=== PATIENT | male | born 1950 | race Caucasian/White ===

== ENCOUNTER 2018-12-09 11:37 | Day surgery (SDC) | payer MEDICARE, SELFPAY ==
--- NOTE | 2018-12-05 12:31 | PM.PREOP ---
Pre-operative Note Interval Note History & Physical reviewed/Exam performed by Physician: Yes Changes to H&P: No
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
[2018-12-09 11:57] VITALS: BP 187/79; PULSE 62; RESP 17; TEMP 36.5; O2SAT 97; BMI 27.2
[2018-12-09] MEDS: PROPARACAINE 0.5% OPHTH SOL 2 DROPS EYE-OP (12:06)
[2018-12-09] MEDS: CATARACT EYE COMPOUND (10 DROPS/SYRINGE) 3 DROPS EYE-OP (12:06)
[2018-12-09] MEDS: BALANCED SALT IRRIG SOLN NO.2 15 ML IRR (13:26)
[2018-12-09] MEDS: CARBACHOL 1.5 ML VIAL INJ (13:26)
[2018-12-09] MEDS: CHONDROIDTIN/SOD HYALURONATE 1.05 ML SYRINGE INTRAOCULA (13:26)
[2018-12-09] MEDS: NEOMYCIN/POLY/DEX OPHTH OINT 1 APPLIC EYE-RIGHT (13:27)
[2018-12-09] MEDS: LIDOCAINE 1% W/EPI INJ 20 ML INJ (13:27)
[2018-12-09] MEDS: MOXIFLOXACIN OPHTH DROPS 3 ML BOTTLE 2 DROPS INJ (13:27)
[2018-12-09] MEDS: HYALURONATE SODIUM 10 MG/ML SYRINGE INJ (13:27)
[2018-12-09] MEDS: PHENYLEPHRINE/LIDOCAINE VIAL (OR) 0.2 ML EYE-OP (13:28)
[2018-12-09] MEDS: TRIAMCINOLONE 50 MG/5 ML VIAL INJ (13:28)
[2018-12-09] MEDS: OFLOXACIN 0.3% OPHTH 5 ML 2 DROPS EYE-RIGHT (13:28)
[2018-12-09] MEDS: BALANCED SALT IRRIG SOLN NO.2 500 ML, EPINEPHrine 1 MG IRR (13:29)
[2018-12-09] MEDS: LIDOCAINE 2% 4 ML, BUPIVACAINE 0.5% (PF) 4 ML, HYALURONIDASE 150 UNIT INJ (13:29)
[2018-12-09 14:00] VITALS: BP 196/81; PULSE 62; RESP 16; TEMP 37.1; O2SAT 100
== END 2018-12-09 14:12 | disposition home or self-care (01) ==
PROVIDERS: PCP Physician Assistant; Visit Provider Ophthalmology
DX: H25.811 Combined forms of age-related cataract, right eye (principal)
CPT/HCPCS: J0171; J2250; J2704; J3010; J3301; J3470

== ENCOUNTER 2019-01-13 09:59 | Day surgery (SDC) | payer MEDICARE, SELFPAY ==
--- NOTE | 2019-01-10 11:36 | PM.PREOP ---
Pre-operative Note Interval Note History & Physical reviewed/Exam performed by Physician: Yes Changes to H&P: No
--- NOTE | 2019-01-10 11:37 | PM.OP.1 ---
Operative Date/Time/Diagnoses Date of procedure: 01/13/19 Time of procedure: 10:45 Procedure & Clinicians Procedure: Preoperative diagnoses: 1. Left nuclear sclerotic and cortical cataract. Postoperative diagnoses: 1. Cataract removed by phacoemulsification with placement of posterior chamber intraocular lens and use of MiLOOP. Procedure: Phacoemulsification with posterior chamber intraocular lens implant and use of MiLOOP. Surgeon: Jeannette Dennison MD Complications: None Specimen: None Implant: ZCBOO+20.5 Blood loss: None Anesthesia: Retrobulbar with monitored standby Description of procedure: Patient presents with a complaint of decreased vision due to cataract which is affecting activities of daily living. The patient wants surgery to improve vision. The patient was taken to the operating room and given IV sedation. A retrobulbar block consisting of 6 cc of 2% xylocaine without epinephrine mixed half and half with 0.5% Marcaine with 1 cc of hyaluronidase added is placed between the medial and lateral 1/3 of the inferior orbital rim. Lid akinesia is obtain with 1% xylocaine with epinephrine infiltrated along the lid margin. The eye is manually massaged for 30 sec, prepped using Betadine solution, and draped in the usual sterile fashion. Temporal approach was made, a 1 mm side-port incision was made 90? from the proposed clear corneal incision position. Phenylephrine 1.5% mixed with 1% xylocaine 0.2 cc was placed into the anterior chamber. Viscoat followed by Healon was then placed. A 2.6 mm clear incision with a 2.6 mm blade was placed. A 360 degree capsulorrhexis style capsulotomy was then performed with a cystitome needle on a Healon. Hydrodelineation and hydrodissection were performed. Extra viscoelastic was placed into the anterior chamber. The MiLOOP device was then inspected and inserted into the eye in the neutral position. The lens was then engaged to the right side under the capsulorrhexis and the lens jane-disected and then the device removed. The phacoemulsification unit is introduced, and used to groove the central lens. It is then removed in chopping mode. Epi nucleus is removed with epinuclear mode and irrigation aspiration was used to remove the peripheral cortex. The posterior capsule is polished. The intraocular lens is selected, inspected, power confirmed, and placed in the posterior chamber. The pupil was constricted with Miostat.. The wound was stromally hydrated and tested for leaks, there was none and it was left sutureless. Vigamox 0.1 cc was placed into the anterior chamber. Kenalog 0.2 cc was placed in the superior subconjunctival space. A drop of antibiotic and was placed and the eye was patched and shielded. The patient was stable and returned to the recovery room in excellent condition. Dictated by: Jeannette Dennison MD Copy to: [facility]
--- NOTE | 2019-01-10 11:42 | P.OP_ITS ---
Operative Date/Time/Diagnoses Date of procedure: 01/13/19 Time of procedure: 10:45 Procedure & Clinicians Procedure: Preoperative diagnoses: 1. Left nuclear sclerotic and cortical cataract. Postoperative diagnoses: 1. Cataract removed by phacoemulsification with placement of posterior chamber intraocular lens and use of MiLOOP. Procedure: Phacoemulsification with posterior chamber intraocular lens implant and use of MiLOOP. Surgeon: Jeannette Dennison MD Complications: None Specimen: None Implant: ZCBOO+20.5 Blood loss: None Anesthesia: Retrobulbar with monitored standby Description of procedure: Patient presents with a complaint of decreased vi chago due to cataract which is affecting activities of daily living. The patient wants surgery to improve vision. The patient was taken to the operating room and given IV sedation. A retrobulbar block consisting of 6 cc of 2% xylocaine without epinephrine mixed half and half with 0.5% Marcaine with 1 cc of hyaluronidase added is placed between the medial and lateral 1/3 of the inferior orbital rim. Lid akinesia is obtain with 1% xylocaine with epinephrine infiltrated along the lid margin. The eye is manually massaged for 30 sec, prepped using Betadine solution, and draped in the usual sterile fashion. Temporal approach was made, a 1 mm side-port incision was made 90? from the proposed clear corneal incision position. Phenylephrine 1.5% mixed with 1% xylocaine 0.2 cc was placed into the anterior chamber. Viscoat followed by Healon was then placed. A 2.6 mm clear incision with a 2.6 mm blade was placed. A 360 degree capsulorrhexis style capsulotomy was then performed with a cysti tome needle on a Healon. Hydrodelineation and hydrodissection were performed. Extra viscoelastic was placed into the anterior chamber. The MiLOOP device was then inspected and inserted into the eye in the neutral position. The lens was then engaged to the right side under the capsulorrhexis and the lens jane- disected and then the device removed. The phacoemulsification unit is introduced, and used to groove the central lens. It is then removed in chopping mode. Epi nucleus is removed with epinuclear mode and irrigation aspiration was used to remove the peripheral cortex. The posterior capsule is polished. The intraocular lens is selected, inspected, power confirmed, and placed in the posterior chamber. The pupil was constricted with Miostat.. The wound was stromally hydrated and tested for leaks, there was none and it was left sutureless. Vigamox 0.1 cc was placed into the anterior chamber. Kenalog 0.2 cc was placed in the superior subconjunctival space. A drop of antibiotic and was placed and the eye was patched and shielded. The patient was stable and returned to the recovery room in excellent condition. Dictated by: Jeannette Dennison MD Copy to: [facility]
[2019-01-13] MEDS: PROPARACAINE 0.5% OPHTH SOL 2 DROPS EYE-OP (10:15)
[2019-01-13 10:16] VITALS: BMI 24.7
[2019-01-13] MEDS: CATARACT EYE COMPOUND (10 DROPS/SYRINGE) 3 DROPS EYE-OP (10:20)
[2019-01-13 10:21] VITALS: BP 181/88; PULSE 58; RESP 16; TEMP 37.2; O2SAT 98
[2019-01-13] MEDS: LIDOCAINE 2% 4 ML, BUPIVACAINE 0.5% (PF) 4 ML, HYALURONIDASE 150 UNIT INJ (11:28)
[2019-01-13] MEDS: LIDOCAINE 1% W/EPI INJ 20 ML INJ (11:29)
[2019-01-13] MEDS: MOXIFLOXACIN OPHTH DROPS 3 ML BOTTLE 2 DROPS INJ (11:30)
[2019-01-13] MEDS: PHENYLEPHRINE/LIDOCAINE VIAL (OR) 0.2 ML EYE-OP (11:30)
[2019-01-13] MEDS: TRIAMCINOLONE 50 MG/5 ML VIAL INJ (11:30)
[2019-01-13] MEDS: HYALURONATE SODIUM 10 MG/ML SYRINGE INJ (11:31)
[2019-01-13] MEDS: NEOMYCIN/POLY/DEX OPHTH OINT 1 APPLIC EYE-LEFT (11:31)
[2019-01-13] MEDS: CHONDROIDTIN/SOD HYALURONATE 1.05 ML SYRINGE INTRAOCULA (11:31)
[2019-01-13] MEDS: BALANCED SALT IRRIG SOLN NO.2 15 ML IRR (11:31)
[2019-01-13] MEDS: OFLOXACIN 0.3% OPHTH 5 ML 2 DROPS EYE-LEFT (11:31)
[2019-01-13] MEDS: CARBACHOL 1.5 ML VIAL INJ (11:31)
[2019-01-13] MEDS: BALANCED SALT IRRIG SOLN NO.2 500 ML, EPINEPHrine 1 MG IRR (11:32)
[2019-01-13 11:53] VITALS: BP 193/77; PULSE 57; RESP 12; TEMP 36.5; O2SAT 100
== END 2019-01-13 12:04 | disposition home or self-care (01) ==
LOC: OR 10:01
PROVIDERS: PCP Physician Assistant; Visit Provider Ophthalmology
PROC: (CPT 66984; principal; 2019-01-13 10:45)
DX: H25.812 Combined forms of age-related cataract, left eye (principal)
CPT/HCPCS: 66984; J0171; J2250; J2704; J3010; J3301; J3470

== ENCOUNTER 2019-06-08 19:03 | Emergency (ER) | payer MEDICARE, SELFPAY ==
--- NOTE | 2019-06-08 19:05 | ED.LOWEXIN ---
HPI - Extremity Injury (Lower) General Chief Complaint: Extremity Injury, Lower Stated Complaint: LEFT FOOT INJURY Time Seen by Provider: 06/08/19 19:05 Source: patient Mode of arrival: Ambulatory Limitations: no limitations History of Present Illness HPI Narrative: This is a 68-year-old male who comes to the emergency department complaint and his pain in his left foot. Patient states that he dropped a step ladder on his foot a couple hours ago about 1/2 to 2. Since then he has had pain particularly with weight-bearing. He has some swelling a little bit of bruising. Patient states that he will tingling. He denies any other injuries. Denies any other medical issues. Denies any allergies to medications. Related Data Previous Rx's Medication Instructions Recorded celecoxib 200 mg capsule 400 mg PO DAILY #60 cap 12/02/18 zolpidem 10 mg tablet 10 mg PO HSP #30 tab 05/26/19 oxycodone-acetaminophen [Percocet] 1 tab PO QID PRN #20 tab 06/08/19 Allergies Allergy/AdvReac Type Severity Reaction Status Date / Time No Known Drug Allergies Allergy Verified 01/13/19 10:13 Review of Systems Review of Systems ROS Unobtainable: All systems reviewed & are unremarkable except as noted in HPI and below Patient History Medical History Chronic pain syndrome (Chronic Unknown) Insomnia (Chronic Unknown) Surgical History Status post hernia repair Social History household members: friend(s) Smoking Status: Former smoker Tobacco: How many years used: 20 second hand exposure: No alcohol intake: current (a glass of vodka once a night.) substance use type: marijuana (I smoke marijuana once a night. ) Exam Narrative Exam Narrative: GENERAL: Alert and oriented x three, well-nourished male in mild distress HEENT: Head normocephalic, atraumatic, EOMI, pupils reactive, face symmetric, moist mucous membranes NECK: Supple, full range of motion. pain over the 5th metatarsal mid bone, patient has a little bit of swelling and mild ecchymosis although not extensive. Nontender in the toes, nontender in the lateral malleoli and medial malleoli. No tenderness over the calcaneus. 2+ pulse. Normal sensation throughout to light touch. EXTREMITIES: Normal range of motion, no clubbing or edema. Neurovascularly intact NEUROLOGICAL: Cranial nerves II through XII grossly intact. Moving all extremities SKIN: Warm, dry, no petechiae, no rashes or lesions. Initial Vital Signs Initial Vital Signs: Vital Signs Temperature 98.3 F 06/08/19 19:10 Pulse Rate 93 H 06/08/19 19:10 Respiratory Rate 18 06/08/19 19:10 Blood Pressure 191/98 H 06/08/19 19:10 Pulse Oximetry 100 06/08/19 19:10 Course Orders Ordered: ED Orders 06/08/19 19:10 XR foot LT min 3V Stat Vital Signs Vital signs: Vital Signs - 8 hr 06/08/19 19:10 06/08/19 19:16 Temperature 98.3 F Pulse Rate 93 H Pulse Rate [Left Dorsalis Pedis] 93 H Respiratory Rate 18 Blood Pressure 191/98 H Pulse Oximetry 100 Discharge Plan Departure Patient Disposition: Home Clinical Impression: Closed fracture of fifth metatarsal bone Discharge Date/Time: 06/08/19 20:05 Instructions: DI for Foot Fracture Activity Restrictions/Additional Instructions: Follow-up with Orthopedic surgery in the next 7-10 days for recheck. Call for an appointment in the morning. Take medication as prescribed for pain, this medication can make you sleepy do not drive, perform hazardous activities or make any major decisions while taking it. Splint Care: Keep splint clean and dry. Elevated affected body part to decrease swelling. OK to use ice pack on the affected body part. Use for 15-20 minutes each time, for 5-6x per day. If you develop worsening pain, numbness, tingling, discoloration of the affected body part, loosen the splint by loosening the JEROD wrap, and either see your doctor for an urgent re-assessment, or return to the Emergency Department. Return to the Emergency Department for any new or worsening symptoms. Prescriptions: New oxycodone-acetaminophen [Percocet] 5-325 mg tablet 1 tab PO QID PRN (Reason: pain) Qty: 20 RF: 0 No Action celecoxib 200 mg capsule 400 mg PO DAILY Qty: 60 RF: 6 zolpidem [Ambien] 10 mg tablet 10 mg PO HSP Qty: 30 RF: 5 Referrals: Kallie Crews PA-C [Primary Care Provider] - Christophe Rico MD [Physician] -
[2019-06-08 19:10] VITALS: BP 191/98; PULSE 93; RESP 18; TEMP 36.8; O2SAT 100; BMI 27.9
--- NOTE | 2019-06-08 19:10 | DI.RAD.S_ITS ---
PROCEDURE: XR FOOT LT MIN 3V INDICATIONS: ladder fell on foot, pain/swelling 5th metatarsal TECHNIQUE: 3 views of the foot were acquired. COMPARISON: [facility], , FOOT 2V RIGHT, 07/02/2015, 16:59. FINDINGS: Bones: There is a minimally displaced fracture at the base of the fifth metatarsal. It is unclear whether there is intra-articular extension. No other acute fracture or dislocation. Severe degenerative changes are present at the first MTP joint. Soft tissues: No tibiotalar joint effusion. Achilles tendon appears normal. IMPRESSION: Proximal fifth metatarsal fracture. Dictated by: Marylou Cook M.D. on 06/08/2019 at 19:47 Approved by: Marylou Cook M.D. on 06/08/2019 at 19:48
[2019-06-08 19:16] VITALS: PULSE 93
== END 2019-06-08 20:05 | disposition home or self-care (01) ==
PROVIDERS: Emergency Provider Emergency Medicine; PCP Physician Assistant
DX: S92.352A Displaced fracture of fifth metatarsal bone, left foot, initial encounter for closed fracture (principal)
CPT/HCPCS: 29550; 73630; 99283

== ENCOUNTER → 2020-05-12 13:40 | Outpatient (CLI) | payer MEDICARE, SELFPAY ==
[2020-05-12 15:03] LABS: Hemoglobin A1C% w Est Avg Glu 6.8 % (4.0-6.0)
[2020-05-12 15:13] LABS: Alanine Aminotransferase 57 IU/L (<50); Albumin 4.2 g/dL (3.5-5.0); Albumin Globulin Ratio 1.3 (1.0-2.8); Alkaline Phosphatase 50 U/L (38-126); Aspartate Aminotransferase 59 IU/L (17-59); BUN Creatinine Ratio 17.8 (6-22); Blood Urea Nitrogen 13 mg/dL (9-20); Calcium 9.2 mg/dL (8.4-10.2); Carbon Dioxide 29 mmol/L (22-32); Chloride 99 mmol/L (98-107); Cholesterol 240 mg/dL (140-199); Estimated Glomerular Filt Rate > 60.0 mL/min (>60); Globulin 3.3 g/dL (1.7-4.1); Glucose 133 mg/dL (80-110); HDL Cholesterol 69 mg/dL (40-60); HEMOLYSIS < 15 (0-50); LDL Cholesterol Calculated 141 mg/dL (<100); Potassium 4.3 mmol/L (3.4-5.1); Sodium 136 mmol/L (137-145); Total Protein 7.5 g/dL (6.3-8.2); Triglycerides 150 mg/dL (35-150)
== END ==
PROVIDERS: PCP Family Medicine; Referring Provider Family Medicine; Visit Provider Family Medicine
DX: G47.00 Insomnia, unspecified (principal); G89.29 Other chronic pain; E11.9 Type 2 diabetes mellitus without complications; R73.09 Other abnormal glucose
CPT/HCPCS: 36415; 80053; 80061; 83036

== ENCOUNTER → 2020-05-15 13:31 | Outpatient (CLI) | payer MEDICARE, SELFPAY ==
[2020-05-16 14:12] LABS: Fecal Immunochemical Test Negative (Negative)
== END ==
PROVIDERS: PCP Family Medicine; Referring Provider Family Medicine; Visit Provider Family Medicine
DX: G47.00 Insomnia, unspecified (principal); G89.29 Other chronic pain
CPT/HCPCS: 82274

== ENCOUNTER → 2020-07-03 11:28 | Outpatient (CLI) | payer MEDICARE, SELFPAY ==
[2020-07-03 13:20] LABS: COVID19 -Nasal RAPID Negative (Negative)
== END ==
PROVIDERS: PCP Family Medicine; Visit Provider Surgery
DX: Z11.59 Encounter for screening for other viral diseases (principal)
CPT/HCPCS: 87635; C9803

== ENCOUNTER 2020-07-04 10:56 | Day surgery (SDC) | payer MEDICARE, MEDICAID, SELFPAY ==
[2020-06-30 13:06] VITALS: BMI 32.3
[2020-07-04] VITALS (9 sets, daily range): BP systolic 113–169; BP diastolic 67–98; PULSE 56–72; RESP 12–18; TEMP 36.3–36.9; O2SAT 92–98; BMI 31.5
[2020-07-04] MEDS: LACTATED RINGERS 1,000 ML 100 ML IV (11:35)
--- NOTE | 2020-07-04 12:01 | PM.PREOP ---
Pre-operative Note COVID-19 COVID-19 status: Negative Interval Note History & Physical reviewed/Exam performed by Physician: Yes Changes to H&P: No
[2020-07-04] MEDS: CEFAZOLIN 2 GM/100 ML FROZ.PIGGY IV (13:16)
--- NOTE | 2020-07-04 13:34 | SUR.OPER ---
Addendum entered by Grace Heart R.N. 07/04/20 13:37: pillow under legs. Original Note: Supine on padded OR bed, head on pillow, arms secured on padded arm boards at <90 degrees abduction, legs uncrossed, safety belt at thigh, tape over blanket over lower legs.
[2020-07-04] MEDS: BUPIVACAINE 0.25% (PF) VIAL 30 ML INJ (13:46)
--- NOTE | 2020-07-04 14:25 | PM.OP.1 ---
Operative Date/Time/Diagnoses Date of procedure: 07/04/20 Time of procedure: 14:25 Pre-op diagnosis: Umbilical hernia Post-op diagnosis: same Procedure & Clinicians Procedure: Open umbilical hernia repair with mesh Same procedure as scheduled: Yes Indications: A 69-year-old man with a symptomatic umbilical hernia here for elective repair Surgeon: Isac Raman Anesthesia Type: General Operative Notes Findings: 1.5 cm fascial defect containing incarcerated omentum Specimen(s): none sent Estimated Blood Loss (mL): 20 Procedure in detail: Patient was brought to the operating room placed supine on the table. Bilateral lower extremity compression devices were applied. General anesthesia was induced and they were intubated with an endotracheal tube. They received 2 g of Ancef prior to skin incision. They were prepped and draped in sterile fashion. A time-out was performed. A curvilinear incision was made inferior to the umbilicus. The subcutaneous tissues were divided. The umbilical hernia was identified and the hernia sac was dissected off the umbilical skin and circumferentially off of the fascia defect. The hernia sac was sharply opened and contained viable omentum. The omentum was reduced back into the abdomen. Using blunt dissection I carefully carefully freed the hernia sac from beneath the fascia defect in order to accomodate the mesh. The fascia defect was 1.5 cm in maximal diameter. A Bard Ventralex ST hernia patch 4 cm was inserted beneath the fascia defect and above the peritoneum in a sublay position. The mesh was anchored in multiple locations using Ethibond suture to the fascia and the fascial defect was closed over the mesh. The umbilical skin was tacked to the subcutaneous tissues and then the remainder of the subcutaneous tissues were reapproximated using 3 0 Vicry,l skin closed with 4 0 Monocryl followed by the application of Dermabond and Steri-Strips. Sponge instrument count at the end of the operation was correct. Patient tolerated procedure well was extubated and transferred to postoperative care unit in stable condition. Complications: none Post-operative Condition: stable Disposition: same day surgery
[2020-07-04] MEDS: HYDROMORPHONE 2 MG INJ IV ×2 (14:34→14:38)
[2020-07-04] MEDS: fentaNYL 100 MCG/2 ML INJ IV ×4 (14:35→14:52)
[2020-07-04] MEDS: OXYCODONE IR 5 MG TABLET PO (14:43)
[2020-07-04] MEDS: OXYCODONE/ACETAMINOPHEN 5/325 TABLET 1 TAB PO (14:43)
[2020-07-04] MEDS: ACETAMINOPHEN 325 MG TABLET 650 MG PO (14:43)
--- NOTE | 2020-07-04 15:43 | SUR.PHASEII ---
Pt dcd in stable condition via wc at 1530 but friend still getting rx, met up with friend at pharmacy and waited 14 minutes. Dcd now at curbside with rx and all dc instructions pt verbalizes understanding. Up and ambulating well without problems
== END 2020-07-04 15:45 | disposition home or self-care (01) ==
PROVIDERS: PCP Family Medicine; Referring Provider Surgery; Visit Provider Surgery
PROC: (CPT 49585; principal; 2020-07-04 11:45)
DX: K42.9 Umbilical hernia without obstruction or gangrene (principal); I10 Essential (primary) hypertension; E78.5 Hyperlipidemia, unspecified; E11.9 Type 2 diabetes mellitus without complications; Z79.84 Long term (current) use of oral hypoglycemic drugs
CPT/HCPCS: 49585; C1781; J0690; J1170; J2250; J3010

== ENCOUNTER → 2021-06-21 15:14 | Outpatient (CLI) | payer MEDICARE, MEDICAID, SELFPAY ==
--- NOTE | 2021-06-21 15:16 | DI.RAD.S_ITS ---
PROCEDURE: XR SHOULDER RT MIN 2V INDICATIONS: Progressive right shoulder pain, adhesive capsulitis TECHNIQUE: 3 views of the shoulder were acquired. COMPARISON: [facility], , SHOULDER MIN 2VW (RT), 09/18/2012, 14:32. FINDINGS: Bones: No fractures or dislocations. No suspicious bony lesions. Visualized ribs appear intact. Moderate periarticular osteophyte formation at the acromioclavicular and glenohumeral joints. Soft tissues: No suspicious soft tissue calcifications. IMPRESSION: Osteoarthritis. No acute fracture. No osseous lesion. If symptoms and/or clinical suspicion for pathology persist, further assessment with repeat, or advanced imaging (e.g., CT, MRI, or bone scan) may be helpful for further assessment. Dictated by: Lissette Juarez M.D. on 06/21/2021 at 16:30 Approved by: Lissette Juarez M.D. on 06/21/2021 at 16:31
== END ==
PROVIDERS: PCP Family Medicine; Referring Provider Family Medicine; Visit Provider Family Medicine
DX: M75.01 Adhesive capsulitis of right shoulder (principal); M25.511 Pain in right shoulder; M19.011 Primary osteoarthritis, right shoulder
CPT/HCPCS: 73030

== ENCOUNTER → 2022-01-25 09:56 | Outpatient (CLI) | payer MEDICARE, MEDICAID, SELFPAY ==
[2022-01-25 10:41] LABS: Hemoglobin A1C% w Est Avg Glu 6.9 % (4.0-6.0)
[2022-01-25 10:59] LABS: Alanine Aminotransferase 40 IU/L (<50); Albumin 4.3 g/dL (3.5-5.0); Albumin Globulin Ratio 1.3 (1.0-2.8); Alkaline Phosphatase 49 U/L (38-126); Aspartate Aminotransferase 46 IU/L (17-59); BUN Creatinine Ratio 14.7 (6-22); Bilirubin Total 0.8 mg/dL (0.2-1.3); Blood Urea Nitrogen 11 mg/dL (9-20); Calcium 9.1 mg/dL (8.4-10.2); Carbon Dioxide 30 mmol/L (22-32); Chloride 99 mmol/L (98-107); Estimated Glomerular Filt Rate > 60 mL/min (>60); Globulin 3.2 g/dL (1.7-4.1); Glucose 174 mg/dL (80-110); HEMOLYSIS < 15 (0-50); Potassium 4.9 mmol/L (3.4-5.1); Sodium 134 mmol/L (137-145); Total Protein 7.5 g/dL (6.3-8.2); Uric Acid 4.4 mg/dL (3.5-8.5)
[2022-01-25 11:20] LABS: TSH w/ Reflex to FT4 1.79 uIU/mL (0.47-4.68)
[2022-01-25 11:34] LABS: Creatinine Urine Random 117.6 mg/dL
[2022-01-25 11:38] LABS: Microalbumin Urine Random 1.3 mg/dL (0-1.6)
== END ==
PROVIDERS: PCP Family Medicine; Referring Provider Family Medicine; Visit Provider Family Medicine
DX: E11.9 Type 2 diabetes mellitus without complications (principal); E78.2 Mixed hyperlipidemia
CPT/HCPCS: 36415; 80053; 82043; 82570; 83036; 84443; 84550

== ENCOUNTER → 2022-11-21 12:27 | Outpatient (CLI) | payer MEDICARE, SELFPAY ==
--- NOTE | 2022-11-21 12:29 | DI.RAD.S_ITS ---
PROCEDURE: XR LUMBAR SPINE MIN 4V INDICATIONS: LOW BACK PAIN TECHNIQUE: 8 views of the lumbar spine were acquired, including bilateral oblique views. COMPARISON: None. FINDINGS: Bones: 5 nonrib-bearing vertebrae are present. Grade 1 anterolisthesis of L4 on L5, secondary to facet arthrosis. Moderate disc height loss at all levels. Moderate facet arthrosis, L3 through S1. Left SI joint and pubic symphysis arthrodesis, without complication. Soft tissues: Overlying bowel gas pattern is normal. No suspicious soft tissue calcifications. Oblique images: No pars defects. IMPRESSION: Moderate, multilevel degenerative disc disease and lower lumbar facet arthrosis. Dictated by: Marvin Arellano M.D. on 11/21/2022 at 14:34 Approved by: Marvin Arellano M.D. on 11/21/2022 at 14:36
--- NOTE | 2022-11-21 12:29 | DI.RAD.S_ITS ---
PROCEDURE: XR KNEE LT 3V INDICATIONS: Chronic pain, post-surgical TECHNIQUE: 3 views of the knee were acquired. COMPARISON: None. FINDINGS: Bones: Tibial plateau ORIF, without hardware complication. Healed proximal fibular shaft fracture. Tricompartmental joint space narrowing with associated osteophytosis. Subchondral sclerosis of the medial tibial plateau. Chondrocalcinosis. Soft tissues: No joint effusion. No suspicious soft tissue calcifications. IMPRESSION: Moderate tricompartmental osteoarthritis. Chondrocalcinosis, which can be seen in the setting of CPPD, aging, and parathyroid disorders. Dictated by: Marvin Arellano M.D. on 11/21/2022 at 13:58 Approved by: Marvin Arellano M.D. on 11/21/2022 at 14:00
--- NOTE | 2022-11-21 12:29 | DI.RAD.S_ITS ---
PROCEDURE: XR HIP W PEL IF DONE LT MIN 4V INDICATIONS: Bilateral hip pain TECHNIQUE: AP pelvis and lateral view of the hips acquired. COMPARISON: None. FINDINGS: Bones: Left sacroiliac and pubic symphysis arthrodesis, without hardware complication. Nonuniform joint space narrowing of the hip joints, with osteophytic lipping of the acetabulum. Soft tissues: Overlying postoperative changes are noted. No suspicious soft tissue densities. IMPRESSION: Mild bilateral hip osteoarthritis. Dictated by: Marvin Arellano M.D. on 11/21/2022 at 13:56 Approved by: Marvin Arellano M.D. on 11/21/2022 at 13:57
--- NOTE | 2022-11-21 12:29 | DI.RAD.S_ITS ---
PROCEDURE: XR KNEE RT 3V INDICATIONS: Chronic right knee pain TECHNIQUE: 3 views of the knee were acquired. COMPARISON: None. FINDINGS: Bones: No fractures or dislocations. No suspicious bony lesions. Tricompartmental nonuniform joint space narrowing. Osteophytosis of the medial tibial plateau and patella. Soft tissues: No joint effusion. No suspicious soft tissue calcifications. IMPRESSION: Mild tricompartmental osteoarthritis. Dictated by: Marvin Arellano M.D. on 11/21/2022 at 13:57 Approved by: Marvin Arellano M.D. on 11/21/2022 at 13:58
[2022-11-21 13:48] LABS: Add Manual Diff / Slide Review NO; Basophils Absolute Auto 0 /uL (0-100); Basophils Percent Auto 0.7 % (0-2); Eosinophils Absolute Auto 100 /uL (0-450); Eosinophils Percent Auto 0.9 % (2-4); Hematocrit 45.2 % (41-53); Hemoglobin 15.6 g/dL (13.5-17.5); Lymphocytes Absolute Auto 2200 /uL (1100-4500); Lymphocytes Percent Auto 30.3 % (25-40); Mean Corpuscular HGB Conc 34.5 % (30-36); Mean Corpuscular Hemoglobin 33.8 PG (26-34); Monocytes Absolute Auto 800 /uL (0-900); Monocytes Percent Auto 10.9 % (3-14); Neutrophils Absolute Auto 4100 /uL (1500-7000); Neutrophils Percent Auto 57.2 % (50-75); Platelet Count 235 X10^3/uL (150-400); Red Blood Cell Count 4.61 X10^6/uL (4.5-5.9); Red Cell Distribution Width 13.6 % (11.6-14.8); White Blood Cell Count 7.2 X10^3/uL (4.5-11.0)
[2022-11-21 14:49] LABS: Alanine Aminotransferase 90 IU/L (<50); Albumin 4.2 g/dL (3.5-5.0); Albumin Globulin Ratio 1.4 (1.0-2.8); Alkaline Phosphatase 57 U/L (38-126); Aspartate Aminotransferase 111 IU/L (17-59); BUN Creatinine Ratio 22.6 (6-22); Bilirubin Total 0.9 mg/dL (0.2-1.3); Blood Urea Nitrogen 19 mg/dL (9-20); Calcium 9.7 mg/dL (8.4-10.2); Carbon Dioxide 30 mmol/L (22-32); Chloride 99 mmol/L (98-107); Cholesterol 256 mg/dL (140-199); Estimated Glomerular Filt Rate > 60 mL/min (>60); Globulin 3.1 g/dL (1.7-4.1); Glucose 180 mg/dL (80-110); HEMOLYSIS < 15 (0-50); Potassium 4.6 mmol/L (3.4-5.1); Sodium 138 mmol/L (137-145); Total Protein 7.3 g/dL (6.3-8.2); Triglycerides 152 mg/dL (35-150)
[2022-11-21 14:57] LABS: LDL Cholesterol Calculated 101 mg/dL (<100)
[2022-11-21 14:58] LABS: HDL Cholesterol 125 mg/dL (40-60)
[2022-11-22 06:04] LABS: Labcorp Hemoglobin (Hb) A1c 7.1 % (4.8-5.6)
== END ==
PROVIDERS: PCP Family Medicine; Referring Provider Anesthesiology; Visit Provider Anesthesiology
DX: M16.0 Bilateral primary osteoarthritis of hip (principal); M17.0 Bilateral primary osteoarthritis of knee; M11.262 Other chondrocalcinosis, left knee; M51.36 Other intervertebral disc degeneration, lumbar region; M47.816 Spondylosis without myelopathy or radiculopathy, lumbar region; M47.817 Spondylosis without myelopathy or radiculopathy, lumbosacral region; M43.06 Spondylolysis, lumbar region; M25.551 Pain in right hip; M25.552 Pain in left hip; M25.561 Pain in right knee; M25.562 Pain in left knee; M54.50 Low back pain, unspecified; E11.9 Type 2 diabetes mellitus without complications; E78.5 Hyperlipidemia, unspecified; G89.29 Other chronic pain
CPT/HCPCS: 36415; 72110; 73522; 73562; 80053; 80061; 83036; 85025; 99214

== ENCOUNTER 2022-11-28 13:15 | Emergency (ER) | payer MEDICARE, SELFPAY ==
[2022-11-28 13:22] VITALS: BP 209/75; BP 210/97; PULSE 92; PULSE 93; RESP 16; TEMP 36.1; O2SAT 96; BMI 31.5
--- NOTE | 2022-11-28 13:28 | ED.GENADULT ---
HPI - General Adult General Chief complaint: Diabetic Problem Stated complaint: blood sugar reading 315 Time Seen by Provider: 11/28/22 13:22 Source: patient Mode of arrival: Ambulatory History of Present Illness HPI narrative: 72-year-old male former smoker with history of hypertension and type 2 diabetes on metformin presents for evaluation of blood sugar of 315 at home. He has no symptoms whatsoever. He is not dizzy nor weak or lightheaded. Denies blurred vision or trouble with speech. He denies any chest pain or shortness of breath. He is had no abdominal pain, nausea or vomiting. He denies any excessive thirst or hunger, he denies frequent urination. He denies changes in diet or medications. Related Data Home Medications Medication Instructions Recorded Confirmed aspirin 81 mg tablet 81 mg PO DAILY 07/04/20 11/21/22 Previous Rx's Medication Instructions Recorded amlodipine 5 mg tablet 5 mg PO BEDTIME #90 tabs 06/11/22 lisinopril 20 1 tab PO DAILY #90 tabs 06/11/22 mg-hydrochlorothiazide 12.5 mg tablet celecoxib 200 mg capsule See Rx Instructions .Route 09/13/22 .COMPLEX #180 caps zolpidem 10 mg tablet See Rx Instructions .Route 10/12/22 .COMPLEX #30 tabs oxycodone 5 mg tablet 5 mg PO TID PRN pain #90 tabs 10/29/22 metformin 500 mg tablet See Rx Instructions .Route 11/20/22 .COMPLEX #60 tabs gabapentin 300 mg capsule 300 mg PO .COMPLEX #90 caps 11/21/22 metformin 1,000 mg tablet 1,000 mg PO BID #60 tabs 11/28/22 Allergies Allergy/AdvReac Type Severity Reaction Status Date / Time No Known Drug Allergies Allergy Verified 11/28/22 13:22 Review of Systems Review of Systems Narrative: GENERAL: Denies chills, fatigue, malaise, fever, sweats. HEENT: Denies sinus pain, ear pain, sore throat, difficulty swallowing, dizziness. RESPIRATORY: Denies dyspnea, cough, wheezing, hemoptysis, sputum. CARDIOVASCULAR: Denies chest pain, palpitations, orthopnea, edema, GASTROINTESTINAL: Denies nausea, vomiting, abdominal pain, diarrhea, constipation, melena. : Denies dysuria, frequency, incontinence, hematuria, urinary retention. MUSCULOSKELETAL: denies weakness, joint pain, or bony pain SKIN: Denies rash, skin lesions, or other NEUROLOGIC: Denies weakness, headache, numbness, change in speech, confusion, seizures, incoordination. PSYCHIATRIC: No concerning psychosocial issues. 12 point review of systems is negative except for those stated above Patient History Medical History Adhesive capsulitis Bilateral hip pain Chronic pain syndrome (Unknown) Hyperlipidemia Hypertension Insomnia (Unknown) Left knee pain Right knee pain Right shoulder injury Right shoulder pain Seasonal allergic rhinitis Seborrheic keratosis Spondylolysis, lumbar region Type 2 diabetes mellitus Umbilical hernia Visual changes Well adult exam Surgical History Status post hernia repair Family History Family/Other No pertinent family history Social History household members: friend(s) Smoking Status: Former smoker Tobacco: How many years used: 20 second hand exposure: No alcohol intake: current substance use type: marijuana Smoking Status: Former smoker alcohol intake frequency: 0-2 drinks per day Alcohol type: beer Substance Use Type: does not use Exam Narrative Exam Narrative: GENERAL: [72] year old patient appears stated age. Well-developed patient, in no obvious HEAD: Atraumatic. Normocephalic. EYES: Pupils equal round and reactive. Extraocular motions intact. No scleral icterus. No injection or drainage. ENT: Nose without bleeding, purulent drainage. Throat without erythema, tonsillar hypertrophy or exudate. Airway patent. NECK: Trachea midline. Non tender CARDIOVASCULAR: Regular rate and rhythm without murmurs, gallops, or rubs. RESPIRATORY: Clear to auscultation. Breath sounds equal bilaterally. No wheezes, rales, or rhonchi. GASTROINTESTINAL: Abdomen soft, non-tender, nondistended. EXTREMITIES: No edema or joint tenderness. BACK: Nontender without deformity or crepitance. No flank tenderness. NEURO: AOx3. SKIN: No rash or erythema of visible areas Initial Vital Signs Initial Vital Signs: Vital Signs Temperature 97.0 F L 11/28/22 13:22 Pulse Rate 92 H 11/28/22 13:22 Respiratory Rate 16 11/28/22 13:22 Blood Pressure 210/97 H 11/28/22 13:22 Pulse Oximetry 96 11/28/22 13:22 Oxygen Delivery Method Room Air 11/28/22 13:22 Course Consultations Consultation #1: call to Dr. Thayer, after discussion of history and physical we sure the opinion that given blood sugar in the 230s in the absence of symptoms there is no indication for a workup at this time. He does recommend increasing the patient's metformin from 500 b.i.d. to 1000 mg b.i.d.. Vital Signs Vital signs: Vital Signs - 8 hr 11/28/22 13:22 Temperature 97.0 F L Pulse Rate 92 H Respiratory Rate 16 Blood Pressure 210/97 H Pulse Oximetry 96 Oxygen Delivery Method Room Air Medical Decision Making Lab Data Labs: Point of Care Testing Glucose POC 233 Point of care testing: Point of Care Testing Glucose POC 233 MDM Narrative Medical decision making narrative: [72] year old patient presents with elevated blood sugar in the absence of symptoms Multiple etiologies for patient's symptoms considered including, but not limited to: [Medical noncompliance, diabetic emergency versus other] Prior Charts reviewed in our EMR Primary Historian: patient Labs reviewed and interpreted by myself: Blood glucose POC 230 Consultations: Dr. Thayer, see abve Patient is asymptomatic and blood sugars in the 230s. No indication for workup. Discussed with PCP and increase metformin Findings and discharge diagnosis discussed with patient/family followed by verbalization of understanding Return precautions discussed with patient/family whom verbalize understanding of diagnosis and plan Discharge Plan Departure Patient Disposition: Home Clinical Impression: Acute hyperglycemia Instructions: DI for Hyperglycemia -- Adult Activity Restrictions/Additional Instructions: *You have been diagnosed with [mild hyperglycemia ] *What to do: * please increase your metformin to 1000 mg twice daily. Please continue to take your regular medications as directed. [x ] New medication prescriptions sent to your pharmacy: [[facility] ] [ ] New medication written as a paper prescription [ ] No new medications given *Please follow up with your primary care provider in 2-3 days, call for an appointment. Let them know you were seen in the Emergency Department and that we ask that you be seen in follow up. We will electronically transmit a record of today's note if your PCP is in our system *If you do not have a primary care provider please contact the [facility] Resource line at [phone]. They will ask some questions about your medical history and help get you set up with a doctor in the community. *Return to Emergency Department if you should have any new, worsening or concerning symptoms, such as [fever greater than 101 F, shaking chills, worsening pain, persistent vomiting or other bothersome symptoms] Prescriptions: New metformin 1,000 mg tablet 1,000 mg PO BID Qty: 60 0RF No Action lisinopril-hydrochlorothiazide 20-12.5 mg tablet 1 tab PO DAILY Qty: 90 3RF amlodipine 5 mg tablet 5 mg PO BEDTIME Qty: 90 3RF celecoxib 200 mg capsule See Rx Instructions .ROUTE .COMPLEX Qty: 180 0RF Dose Instruction: TAKE TWO CAPSULES BY MOUTH DAILY *DUE FOR FOLLOW-UP PRIOR TO FUTURE REFILLS* Rx Instructions: TAKE TWO CAPSULES BY MOUTH DAILY zolpidem 10 mg tablet See Rx Instructions .ROUTE .COMPLEX Qty: 30 2RF Dose Instruction: TAKE ONE TABLET BY MOUTH AT BEDTIME Rx Instructions: TAKE ONE TABLET BY MOUTH AT BEDTIME oxycodone 5 mg tablet 5 mg PO TID PRN (Reason: pain) Qty: 90 0RF metformin 500 mg tablet See Rx Instructions .ROUTE .COMPLEX Qty: 60 0RF Dose Instruction: TAKE ONE TABLET BY MOUTH TWICE A DAY BEFORE A MEAL Rx Instructions: TAKE ONE TABLET BY MOUTH TWICE A DAY BEFORE A MEAL aspirin 81 mg Tablet 81 mg PO DAILY gabapentin 300 mg capsule 300 mg PO .COMPLEX Qty: 90 2RF Rx Instructions: 1 PO QHS x3 days if tolerated, 1 PO BID x3 days if tolerated, 1 PO TID Referrals: Turner Thayer DO [Primary Care Provider] - Stand Alone Forms: Patient Portal/API
[2022-11-28 13:30] VITALS: BP 175/80; PULSE 86; O2SAT 95
== END 2022-11-28 14:00 | disposition home or self-care (01) ==
PROVIDERS: Emergency Provider Emergency Medicine; PCP Family Medicine
DX: E11.65 Type 2 diabetes mellitus with hyperglycemia (principal)
CPT/HCPCS: 82962; 99282

== ENCOUNTER → 2023-01-14 12:25 | Outpatient (CLI) | payer MEDICARE, SELFPAY ==
--- NOTE | 2023-01-14 12:26 | DI.ECHO.S_ITS ---
[facility]---------[facility] +---------+ : : [address] : [place] : : : : [id number] : : : : Phone: [phone]+ Echocardiogram Report + + :Name: TL GRIFFIN Study Date: 01/14/2023 Height: 70 in : :[facility] ReadingLocation: Weight: 220 lb : : Gender: Male BSA: 2.2 m2 : :: 1950 Age: 72 yrs BP: 159/83 mmHg: :Reason For Study: HEART MURMUR : :Ordering Physician: JUAN M, : :JOHNNY Performed By: Tracy Ma : :Referring: JOHNNY MCGOWAN : + + Interpretation Summary Normal sinus rhythm. Normal LV size and wall thickness. Normal wall motion and LV systolic function. Ejection fraction is 60-65%. Stage I diastolic dysfunction. Normal chamber sizes. Aortic valve leaflets are mildly thickened and calcified. There is moderate associated aortic stenosis. Peak velocity is 3 m/s, mean gradient is 19 mmHg. Otherwise no significant valvular abnormalities. Recommend cardiology consult (not urgent) to discuss valvular heart disease and prognosis. No prior study available for comparison. Procedure: A two-dimensional transthoracic echocardiogram with color flow and Doppler was performed. The study quality was technically adequate. There is no prior echocardiogram noted for this patient. The patient was in sinus rhythm with heart rates between 63-69 bpm during the exam. Left Ventricle: The left ventricle is normal in size and wall thickness. The ejection fraction is estimated to be 65-70%. Right Ventricle: The right ventricle is normal in size and function. Atria: The left atrial size is normal. Right atrial size is normal. There is no Doppler evidence for an interatrial shunt. Mitral Valve: The mitral valve is normal in structure and function. There is trace mitral regurgitation. Aortic Valve: The aortic valve is mildly calcified. There is moderate aortic stenosis. The peak aortic velocity is 3.0 m/sec. The aortic valve mean gradient is 19 mmHg. The calculated aortic valve area is 1.6 cm2. No aortic regurgitation is present. Tricuspid Valve: The tricuspid valve is normal in structure and function. There is mild tricuspid regurgitation. The right ventricular systolic pressure is estimated to be at least 24 mmHg based on an estimated right atrial pressure of 3 mm Hg. Pulmonic Valve: The pulmonic valve is not well seen, but is grossly normal. There is a trace or physiologic amount of pulmonic regurgitation. Great Vessels: The aortic root is normal size. The dimensions of the ascending aorta are normal. The IVC is of normal diameter and collapses greater than 50% with a sniff. This suggests a low right atrial pressure of 3 mm Hg. Pericardium/ Pleura There is no pericardial effusion. There is no pleural effusion. MMode/2D Measurements & Calculations LVIDd: 5.3 cm LVOT diam: 2.3 cm LVIDs: 3.2 cm Ao root diam: 3.2 cm FS: 39.5 % asc Aorta Diam: 3.5 cm EPSS: 0.44 cm Ao Arch Diam (Prox Trans): 2.9 cm IVSd: 1.0 cm LVPWd: 0.93 cm LV dinero. diameter/BSA (cm/m^2): 2.4 LV sys. diameter/BSA (cm/m^2): 1.5 LA A2 area: 20.2 cm2 RA long axis: 5.7 cm LA A4 area: 19.2 cm2 RA area: 15.7 cm2 LA length (vol): 5.8 cm RA vol: 36.6 ml LA vol: 56.6 ml RA : 16.8 ml/m2 LA vol index: 26.0 ml/m2 IVC diam: 1.5 cm RVD1 (basal): 3.7 cm RVD2 (mid): 3.2 cm TAPSE: 2.2 cm Doppler Measurements & Calculations Ao V2 max: 295.7 cm/sec LVOT Max Jose: 113.8 cm/sec Ao V2 mean: 155.6 cm/sec LV V1 max P.2 mmHg Ao max P.7 mmHg LV V1 VTI: 24.0 cm Ao mean P.1 mmHg IVORY(I,D): 2.2 cm2 Ao V2 VTI: 45.5 cm IVORY(V,D): 1.6 cm2 sev ratio: 0.53 IVORY indexed to BSA (cm^2/m^2): 1.00 MV E max jose: 91.7 cm/sec TR max jose: 231.3 cm/sec MV A max jose: 119.1 cm/sec TR max P.4 mmHg MV E/A: 0.77 PA V2 max: 104.9 cm/sec Med Peak E' Jose: 7.0 cm/sec PA V2 mean: 78.3 cm/sec E/E' med: 13.2 PA mean P.6 mmHg Lat Peak E' Jose: 9.4 cm/sec PA pr(Accel): 39.6 mmHg E/E' lat: 9.8 E/e' average: 11.5 MV dec time: 0.30 sec SV(VERITO): 98.7 ml Electronically signed by: Kya Curtis M.D. on Reading Physician:01/14/2023 03:39 PM
== END ==
PROVIDERS: PCP Family Medicine; Referring Provider Family Medicine; Visit Provider Family Medicine
DX: R01.1 Cardiac murmur, unspecified (principal); I35.0 Nonrheumatic aortic (valve) stenosis
CPT/HCPCS: 93306

== ENCOUNTER 2023-01-15 13:40 | Outpatient (CLI) | payer MEDICARE, SELFPAY ==
[2023-01-15] VITALS (10 sets, daily range): BP systolic 168–194; BP diastolic 81–88; PULSE 63–81; RESP 12–23; TEMP 36.2; O2SAT 94–96
--- NOTE | 2023-01-15 13:41 | DI.RAD.S_ITS ---
P at L4-5. ROCEDURE: PAIN L INTERLAMINAR/CAUDAL INJ INDICATIONS: SPONDYLOSIS COMPARISON: None. FINDINGS: Fluoroscopic spot filming was performed to verify placement of spinal needles at the L4-5 level(s), as labeled on the films. Appropriate location(s) of the needle tip(s) was confirmed by injection of iodinated contrast. IMPRESSION: Fluoroscopic guidance utilized for an intralaminar epidural steroid injection Dictated by: Marvin Arellano M.D. on 01/15/2023 at 17:01 Approved by: Marvin Arellano M.D. on 01/15/2023 at 17:02
[2023-01-15] MEDS: BUPIVACAINE 0.25% (PF) VIAL 5 ML INJ (14:08)
[2023-01-15] MEDS: methylPREDNISolone acetate 80 MG/ML VIAL INJ (14:09)
[2023-01-15] MEDS: IOPAMIDOL 15 ML VIAL 3 ML INJ (14:09)
[2023-01-15] MEDS: MIDAZOLAM 2 MG/2 ML VIAL IV (14:09)
--- NOTE | 2023-01-15 14:18 | P.PCN_ITS ---
Date/Time/Diagnoses Date of procedure: 01/15/23 Time of procedure: 14:00 Procedure Notes Physician: Samy Ramos Total Fluoroscopy time (seconds): 15 Total sedation minutes: 9 Procedure in detail & Post-procedure care: L4-5 Interlaminar Epidural Steroid Injection Indications: Beni is presenting for treatment of lumbar radiculopathy with low back and leg pain. Preoperative diagnosis: Lumbar radiculopathy Postoperative diagnosis: Same Focused Examination: Ax3 Mood and affect are normal Vital Signs: VSS ASA: 2 Consent: Following review of allergies and potential side effects/complications, including, but not necessarily limited to, infection, allergic reaction, local tissue breakdown, stroke, temporary or permanent nerve injury, paralysis, and possible , the patient indicated that they understood and agreed to procee d.? An informed consent document was signed by the patient, witnessed by a nurse and placed in the patient's chart.? Additionally, other treatment options including medications and physical therapy were reviewed with the patient. All questions were answered. Site was then marked. Anesthesia: After review of previous anesthetic history and IV conscious sedation, the patient was deemed safe to proceed with today's procedure with IV conscious sedation. IV sedation was accomplished with midazolam 2 mg administered by the RN after order by Dr. Ramos. Sedation was titrated to patient comfort during the course of the procedure. Patient remained responsive to all verbal commands. Position: Prone Monitoring: NIBP, Pulse oximetry, 3 lead EKG Needle used: 18 G 3.5? Tuohy Contrast: Isovue 300M Injectate: Depo-Medrol 80 mg with 0.25% Bupivacaine 2 mL Technique: The skin was prepped with chloraprep and then draped in a sterile fashion. Time out was performed as per protocol. Oxygen applied via NC. Skin and subcutaneous structures of the needle entry site was then infiltrated with 3 mL of lidocaine 1%. Under AP, lateral and contralateral oblique fluoroscopic control, the Tuohy needle was guided into the L4-5 epidural space. The space was accessed with loss of resistance technique. Isovue 300M was then injected and the spread was consistent with the epidural space. There was no evidence for intravascular or intrathecal uptake. After negative aspiration, the above- mentioned injectate was then slowly administered and the needle withdrawn. The patient expressed no unusual discomfort or paresthesias during the injection. Band-Aids applied to injection sites. EBL: less than 1 ml Complications: None Post Procedure: Patient was taken to the recovery and monitored. The patient was provided a Pain Log to continue to record the patient's response to the target- specific procedure prior to the patient's follow-up visit with the referring physician. Patient was stable upon discharge. Detailed post procedure instructions were provided. Patient was asked to call in the event of worsening pain, fever, weakness, numbness or bladder or bowel incontinence.
== END 2023-01-15 14:42 | disposition home or self-care (01) ==
LOC: RAD 13:41
PROVIDERS: PCP Family Medicine; Referring Provider Anesthesiology; Visit Provider Anesthesiology
DX: M54.16 Radiculopathy, lumbar region (principal)
CPT/HCPCS: 62323; 82962; J1040; J2250; J3490

== ENCOUNTER → 2023-03-04 08:02 | Outpatient (CLI) | payer MEDICARE, SELFPAY ==
[2023-03-04 09:47] LABS: Alanine Aminotransferase 62 IU/L (<50); Albumin 4.1 g/dL (3.5-5.0); Albumin Globulin Ratio 1.4 (1.0-2.8); Alkaline Phosphatase 44 U/L (38-126); Aspartate Aminotransferase 81 IU/L (17-59); BUN Creatinine Ratio 19.3 (6-22); Bilirubin Total 0.8 mg/dL (0.2-1.3); Blood Urea Nitrogen 16 mg/dL (9-20); Calcium 9.4 mg/dL (8.4-10.2); Carbon Dioxide 32 mmol/L (22-32); Chloride 96 mmol/L (98-107); Estimated Glomerular Filt Rate > 60 mL/min (>60); Glucose 141 mg/dL (80-110); HEMOLYSIS < 15 (0-50); Potassium 5.3 mmol/L (3.4-5.1); Sodium 134 mmol/L (137-145); Total Protein 7.1 g/dL (6.3-8.2)
[2023-03-05 06:05] LABS: x Labcorp Estim. Avg Glu (eAG) 111 mg/dL (.); x Labcorp Hemoglobin A1c 5.5 % (4.8-5.6)
== END ==
PROVIDERS: PCP Family Medicine; Referring Provider Family Medicine; Visit Provider Family Medicine
DX: E11.9 Type 2 diabetes mellitus without complications (principal)
CPT/HCPCS: 36415; 80053; 83036

== ENCOUNTER → 2023-06-11 09:51 | Outpatient (CLI) | payer MEDICARE, SELFPAY ==
[2023-06-11 10:33] LABS: Add Manual Diff / Slide Review NO; Basophils Absolute Auto 0 /uL (0-100); Basophils Percent Auto 0.8 % (0-2); Eosinophils Absolute Auto 100 /uL (0-450); Eosinophils Percent Auto 2.7 % (2-4); Hematocrit 41.7 % (41-53); Hemoglobin 14.2 g/dL (13.5-17.5); Lymphocytes Absolute Auto 1900 /uL (1100-4500); Lymphocytes Percent Auto 36.9 % (25-40); Mean Corpuscular HGB Conc 34.2 % (30-36); Mean Corpuscular Hemoglobin 33.6 PG (26-34); Mean Corpuscular Volume 98.5 fL (80-100); Monocytes Absolute Auto 700 /uL (0-900); Monocytes Percent Auto 13.3 % (3-14); Neutrophils Absolute Auto 2400 /uL (1500-7000); Neutrophils Percent Auto 46.3 % (50-75); Platelet Count 212 X10^3/uL (150-400); Red Blood Cell Count 4.24 X10^6/uL (4.5-5.9); Red Cell Distribution Width 12.7 % (11.6-14.8); White Blood Cell Count 5.1 X10^3/uL (4.5-11.0)
[2023-06-11 10:35] LABS: Hemoglobin A1C% w Est Avg Glu 5.1 % (4.0-6.0)
[2023-06-11 10:50] LABS: Alanine Aminotransferase 81 IU/L (<50); Albumin 4.4 g/dL (3.5-5.0); Albumin Globulin Ratio 1.4 (1.0-2.8); Alkaline Phosphatase 46 U/L (38-126); Aspartate Aminotransferase 102 IU/L (17-59); BUN Creatinine Ratio 19.8 (6-22); Bilirubin Total 0.6 mg/dL (0.2-1.3); Blood Urea Nitrogen 17 mg/dL (9-20); Calcium 9.6 mg/dL (8.4-10.2); Carbon Dioxide 26 mmol/L (22-32); Chloride 98 mmol/L (98-107); Estimated Glomerular Filt Rate > 60 mL/min (>60); Globulin 3.1 g/dL (1.7-4.1); Glucose 96 mg/dL (80-110); HEMOLYSIS < 15 (0-50); Potassium 5.1 mmol/L (3.4-5.1); Sodium 134 mmol/L (137-145); Total Protein 7.5 g/dL (6.3-8.2)
[2023-06-11 11:13] LABS: Prostate Specific Antigen Scrn 0.641 ng/mL (0.1-4.0)
== END ==
PROVIDERS: PCP Family Medicine; Referring Provider Family Medicine; Visit Provider Family Medicine
DX: E11.9 Type 2 diabetes mellitus without complications (principal); Z12.5 Encounter for screening for malignant neoplasm of prostate; I10 Essential (primary) hypertension
CPT/HCPCS: 36415; 80053; 83036; 85025; G0103

== ENCOUNTER 2024-08-10 11:50 | Emergency (ER) | payer MEDICARE, SELFPAY ==
[2024-08-10 11:53] VITALS: BP 180/89; PULSE 115; RESP 26; TEMP 37.2; O2SAT 96; BMI 31.0
--- NOTE | 2024-08-10 11:57 | DI.RAD.S_ITS ---
PROCEDURE: XR RIBS LT MIN 3V W CXR1V INDICATIONS: fall/pain TECHNIQUE: 2 views of the ribs were acquired, along with a single view chest. COMPARISON: None. FINDINGS: Surgical changes and devices: None. Bones and chest wall: Age indeterminate deformity involving left posterior 6, 7th, 9th and 10th ribs are seen. No suspicious bony lesions. Overlying soft tissues appear unremarkable. Lungs and pleura: No pleural effusions or pneumothorax. Lungs appear clear. Mediastinum: Mediastinal contours appear normal. Heart size is normal. IMPRESSION: Age indeterminate slightly displaced fractures involving left posterior 6, 7th, 9th and 10th ribs. No acute cardiopulmonary pathology. Dictated by: Ryan Lofton M.D. on 08/10/2024 at 12:57 Approved by: Ryan Lofton M.D. on 08/10/2024 at 13:01
[2024-08-10 12:21] LABS: Add Manual Diff / Slide Review NO; Basophils Absolute Auto 100 /uL (0-100); Basophils Percent Auto 0.7 % (0-2); Eosinophils Absolute Auto 0 /uL (0-450); Eosinophils Percent Auto 0.6 % (2-4); Hematocrit 39.5 % (41-53); Hemoglobin 13.5 g/dL (13.5-17.5); Lymphocytes Absolute Auto 1300 /uL (1100-4500); Lymphocytes Percent Auto 17.3 % (25-40); Mean Corpuscular HGB Conc 34.1 % (30-36); Mean Corpuscular Volume 99.9 fL (80-100); Monocytes Absolute Auto 800 /uL (0-900); Monocytes Percent Auto 10.1 % (3-14); Neutrophils Absolute Auto 5400 /uL (1500-7000); Neutrophils Percent Auto 71.3 % (50-75); Platelet Count 224 X10^3/uL (150-400); Red Blood Cell Count 3.95 X10^6/uL (4.5-5.9); Red Cell Distribution Width 13.1 % (11.6-14.8); White Blood Cell Count 7.6 X10^3/uL (4.5-11.0)
[2024-08-10 12:38] LABS: Alanine Aminotransferase 81 IU/L (<50); Albumin 4.7 g/dL (3.5-5.0); Albumin Globulin Ratio 1.7 (1.0-2.8); Alkaline Phosphatase 59 U/L (38-126); Aspartate Aminotransferase 135 IU/L (17-59); BUN Creatinine Ratio 16.8 (6-22); Bilirubin Total 0.8 mg/dL (0.2-1.3); Blood Urea Nitrogen 17 mg/dL (9-20); Calcium 9.3 mg/dL (8.4-10.2); Carbon Dioxide 22 mmol/L (22-32); Chloride 99 mmol/L (98-107); Estimated Glomerular Filt Rate > 60 mL/min (>60); Globulin 2.8 g/dL (1.7-4.1); Glucose 303 mg/dL (80-110); HEMOLYSIS < 15 (0-50); Potassium 4.4 mmol/L (3.4-5.1); Sodium 133 mmol/L (137-145); Total Protein 7.5 g/dL (6.3-8.2)
--- NOTE | 2024-08-10 12:56 | ED.FALL ---
HPI - Fall General Chief Complaint: Fall Stated Complaint: Fall downstairs, rib px, no blood thinners Time Seen by Provider: 08/10/24 12:56 Source: patient Mode of arrival: Ambulatory History of Present Illness HPI Narrative: 73-year-old male fell down 3 steps at his home earlier today, with direct impact to his left chest, complains of left posterior chest pain, worse with movements and deep breathing. No injury to upper extremities or lower extremities. Denies any head or facial injuries. No numbness or weakness to face arm or leg. He does not take blood thinner medications. Denies abdominal discomfort or pelvic discomfort, no hip injuries. Related Data Home Medications Medication Instructions Recorded Confirmed aspirin 81 mg tablet 81 mg PO DAILY 07/04/20 06/10/24 Previous Rx's Medication Instructions Recorded ketoconazole 2 % topical cream 1 applic topical BID #60 grams 05/28/23 metformin 1,000 mg tablet 1,000 mg PO BID #180 tabs 04/22/24 amlodipine 5 mg tablet 5 mg PO BEDTIME #90 tabs 05/24/24 lisinopril 20 1 tab PO DAILY #90 tabs 05/24/24 mg-hydrochlorothiazide 12.5 mg tablet zolpidem 10 mg tablet See Rx Instructions .Route 06/24/24 .COMPLEX #30 tabs oxycodone 5 mg tablet 5 mg PO QID PRN pain #120 tabs 07/24/24 albuterol sulfate 90 mcg/actuation 2 puff inhalation Q6H PRN 08/10/24 aerosol inhaler shortness of breath or wheezing #8.5 grams albuterol sulfate 90 mcg/actuation 2 puff inhalation Q6H PRN 08/10/24 aerosol inhaler shortness of breath or wheezing #8.5 grams hydrocodone 5 mg-acetaminophen 325 1 tab PO Q6H PRN pain #14 tabs 08/10/24 mg tablet hydrocodone 5 mg-acetaminophen 325 1 tab PO Q6H PRN pain #14 tabs 08/10/24 mg tablet naproxen 500 mg tablet 500 mg PO BID 7 days #14 tabs 08/10/24 naproxen 500 mg tablet 500 mg PO BID 7 days #14 tabs 08/10/24 Allergies Allergy/AdvReac Type Severity Reaction Status Date / Time No Known Drug Allergies Allergy Verified 06/10/24 14:46 Patient History Medical History Aortic stenosis, moderate Osteoarthritis, hip, bilateral Osteoarthritis of knees, bilateral Lumbar radiculopathy Tinea corporis Heart murmur Right knee pain Left knee pain Bilateral hip pain Spondylolysis, lumbar region Seborrheic keratosis Right shoulder pain Seasonal allergic rhinitis Visual changes Adhesive capsulitis Right shoulder injury Well adult exam Hyperlipidemia Type 2 diabetes mellitus Hypertension Umbilical hernia Insomnia (Unknown) Chronic pain syndrome (Unknown) Surgical History Status post hernia repair Family History Family/Other No pertinent family history Social History household members: friend(s) Smoking Status: Former smoker Tobacco: How many years used: 20 second hand exposure: No alcohol intake: current substance use type: marijuana Smoking Status: Former smoker alcohol intake frequency: 0-2 drinks per day Alcohol type: beer Exam Narrative Exam Narrative: GENERAL: Well-developed patient, in mild distress. HEAD: Atraumatic. Normocephalic. EYES: Pupils equal round and reactive. Extraocular motions intact. No scleral icterus. No injection or drainage. ENT: Nose without bleeding, purulent drainage. Throat without erythema, tonsillar hypertrophy or exudate. Airway patent. NECK: Trachea midline. Non tender CARDIOVASCULAR: Regular rate and rhythm without murmurs, gallops, or rubs. RESPIRATORY: Clear to auscultation. Breath sounds equal bilaterally. No wheezes, rales, or rhonchi. Tenderness to left lateral and posterior ribs, no subcutaneous air, no lacerations or abrasions. No flail segments obvious on inspiration expiration. Speaking in full sentences, no respiratory distress GASTROINTESTINAL: Abdomen soft, non-tender, nondistended. EXTREMITIES: No edema or joint tenderness. BACK: Nontender without deformity or crepitance. No flank tenderness. NEURO: AOx3. Motor functions grossly nonfocal SKIN: No rash or erythema of visible areas Initial Vital Signs Initial Vital Signs: Vital Signs Temperature 98.9 F 08/10/24 11:53 Pulse Rate 115 H 08/10/24 11:53 Respiratory Rate 26 H 08/10/24 11:53 Blood Pressure 180/89 H 08/10/24 11:53 Pulse Oximetry 96 08/10/24 11:53 Oxygen Delivery Method Room Air 08/10/24 11:53 Course Orders Ordered: ED Orders 08/10/24 11:57 XR ribs LT min 3V w CXR1V Stat 08/10/24 12:04 CMP [Comprehensive Metabolic Panel] Stat Complete Blood Count AUTO DIFF Stat Lipase Stat 08/10/24 14:03 CT abdomen pelvis w con Stat Discontinued Medications Ketorolac Tromethamine (Ketorolac 30 Mg/Ml Vial) 15 mg IV NOW ONE Stop: 08/10/24 13:49 Last Admin: 08/10/24 13:51 Dose: 15 mg Documented By: AB Vital Signs Vital signs: Vital Signs - 8 hr 08/10/24 11:53 08/10/24 13:37 08/10/24 13:37 Temperature 98.9 F Pulse Rate 115 H 114 H Respiratory Rate 26 H Blood Pressure 180/89 H 156/71 H Pulse Oximetry 96 94 Oxygen Delivery Method Room Air 08/10/24 13:39 08/10/24 14:11 08/10/24 14:11 Temperature Pulse Rate 112 H 107 H Respiratory Rate Blood Pressure 183/82 H Pulse Oximetry 93 97 Oxygen Delivery Method Room Air Room Air 08/10/24 14:39 Temperature Pulse Rate 100 H Respiratory Rate Blood Pressure Pulse Oximetry Oxygen Delivery Method MDM - Fall Lab Data Attestation: I reviewed the patient's lab results. Lab results narrative: White blood cell count 7600, hemoglobin 13.5, platelets adequate. Glucose 303, sodium 133, serum CO2 22, BUN 17 with creatinine 1.01. Liver functions unremarkable. 08/10/24 12:04 08/10/24 12:04 Labs: Lab Results 08/10/24 Range/Units 12:04 WBC 7.6 (4.5-11.0) X10^3/uL RBC 3.95 L (4.5-5.9) X10^6/uL Hgb 13.5 (13.5-17.5) g/dL Hct 39.5 L (41-53) % MCV 99.9 (80-100) fL MCH 34.0 (26-34) PG MCHC 34.1 (30-36) % RDW 13.1 (11.6-14.8) % Plt Count 224 (150-400) X10^3/uL Neut % (Auto) 71.3 (50-75) % Lymph % (Auto) 17.3 L (25-40) % [place] % (Auto) 10.1 (3-14) % Eos % (Auto) 0.6 L (2-4) % Baso % (Auto) 0.7 (0-2) % Neut # (Auto) 5400 (8568-5227) /uL Lymph # (Auto) 1300 (0796-4520) /uL [place] # (Auto) 800 (0-900) /uL Eos # (Auto) 0 (0-450) /uL Baso # (Auto) 100 (0-100) /uL Sodium 133 L (137-145) mmol/L Potassium 4.4 (3.4-5.1) mmol/L Chloride 99 (98-107) mmol/L Carbon Dioxide 22 (22-32) mmol/L BUN 17 (9-20) mg/dL Creatinine 1.01 (0.66-1.25) mg/dL Estimated GFR > 60 (>60) mL/min BUN/Creatinine Ratio 16.8 (6-22) Glucose 303 H (80-110) mg/dL Calcium 9.3 (8.4-10.2) mg/dL Total Bilirubin 0.8 (0.2-1.3) mg/dL AST 135 H (17-59) IU/L ALT 81 H (<50) IU/L Alkaline Phosphatase 59 (38-126) U/L Total Protein 7.5 (6.3-8.2) g/dL Albumin 4.7 (3.5-5.0) g/dL Globulin 2.8 (1.7-4.1) g/dL Albumin/Globulin Ratio 1.7 (1.0-2.8) Lipase 47 (23-300) U/L Imaging Data Chest x-ray: Radiologist's Impression: [address] [address] XRay Report Signed Patient: Gunnar Rdz MR#: [id number] : 1950 Acct:[id number] Age/Sex: 73 / M Date of Service: 08/10/24 Loc: ED Accession Number: [id number] Procedure: XR ribs LT min 3V w CXR1V Ordering Provider: Anil Wilson MD PROCEDURE: XR RIBS LT MIN 3V W CXR1V INDICATIONS: fall/pain TECHNIQUE: 2 views of the ribs were acquired, along with a single view chest. COMPARISON: None. FINDINGS: Surgical changes and devices: None. Bones and chest wall: Age indeterminate deformity involving left posterior 6, 7th, 9th and 10th ribs are seen. No suspicious bony lesions. Overlying soft tissues appear unremarkable. Lungs and pleura: No pleural effusions or pneumothorax. Lungs appear clear. Mediastinum: Mediastinal contours appear normal. Heart size is normal. IMPRESSION: Age indeterminate slightly displaced fractures involving left posterior 6, 7th, 9th and 10th ribs. No acute cardiopulmonary pathology. Dictated by: Ryan Lofton M.D. on 08/10/2024 at 12:57 Approved by: Ryan Lofton M.D. on 08/10/2024 at 13:01 CT scan - abdomen/pelvis: Radiologist's Impression: [place] [address] CT Scan Report Signed Patient: Gunnar Rdz MR#: [id number] : 1950 Acct:[id number] Age/Sex: 73 / M Date of Service: 08/10/24 Loc: ED Accession Number: [id number] Procedure: CT abdomen pelvis w con Ordering Provider: Anil Wilson MD PROCEDURE: CT ABDOMEN PELVIS W CON INDICATIONS: Left lower multiple rib fractures from fall, evaluate spleen TECHNIQUE: After the administration of intravenous contrast, axial sections acquired from the lung bases to the pubic symphysis. Coronal and sagittal reformats were performed. For radiation dose reduction, the following was used: automated exposure control, adjustment of mA and/or kV according to patient size. COMPARISON: Outside Facility, RG, CT ABDOMEN/PELVIS WITHOUT CONTRAST, 04/18/2022, 12:59. [facility], CR, XR RIBS LT MIN 3V W CXR1V, 08/10/2024, 12:07. FINDINGS: Image quality: Diagnostic. Lower Chest: No significant findings. ABDOMEN: Liver: No solid mass. Moderate hepatic steatosis is seen. Gallbladder: No radiopaque gallstones or wall thickening. Biliary ducts: No biliary dilation. Pancreas: No ductal dilation. Spleen: Size is within normal limits. No evidence of splenic laceration. Adrenal Glands: Diffuse thickening of left adrenal gland. No definite adrenal nodule is seen. Kidneys and Ureters: No hydronephrosis. No solid mass. No complex renal cystic lesion which requires follow up. Stomach and Bowel: There is no bowel obstruction or abnormal bowel wall thickening. No mesenteric fat stranding. No abscess collection. Peritoneum: No abnormal intraperitoneal fluid. No free air. Ventral Wall: No significant ventral hernia. Abdominal Nodes: No retroperitoneal or mesenteric adenopathy by size criteria. Vessels: Aorta and inferior vena cava are normal in size. Moderate atherosclerotic calcifications are seen in abdominal aorta. PELVIS: Pelvic Organs: Unremarkable. Bladder: No bladder wall thickening, accounting for underdistention. Pelvic Nodes: No enlarged lymph nodes. Miscellaneous: No inguinal hernias are seen. Bones: No aggressive osseous abnormality. Postsurgical changes are noted in bilateral superior pubic rami from prior internal fixation. Prior surgical fusion of left sacroiliac joint is also noted with surgical hardware in place. No gross hardware loosening or failure. Minimally displaced fractures are noted involving left posterior 12th, 11th, 10th, 9th, 8th, and 7th ribs. IMPRESSION: 1. Slightly displaced acute appearing fractures involving left posterior 7th through 12th ribs. 2. No other fracture or dislocation is seen. Postsurgical changes in bony pelvis as above. 3. No acute solid organ injury is seen in abdomen or pelvis. Specifically, no evidence of splenic laceration. 4. Moderate hepatic steatosis. Diffuse thickening of left adrenal gland without definite adrenal nodule. Dictated by: Ryan Lofton M.D. on 08/10/2024 at 14:13 Approved by: Ryan Lofton M.D. on 08/10/2024 at 14:18 [facility] Narrative Medical decision making narrative: 73-year-old male with fall down 3 steps, left chest pain, tenderness on exam lateral ribs, no crepitance, breath sounds equal, no respiratory distress, normal room-air sat. Left rib series with chest x-ray ordered from triage, which shows multilevel lower posterior left-sided rib fractures, no flail pattern, without hemothorax/pneumothorax. GFR favorable, we will further imaged with CT abdomen and pelvis using IV contrast to evaluate for splenic or other injuries subdiaphragmatic. Patient expresses understanding. He does not want any sedating medications at this time, we would like himself eventually to drive home. IV Toradol. Patient little more comfortable after Toradol, was able to get through the scanner, await results. Declines sedating medications at this time. Amenable to incentive spirometer, we will send albuterol and spacer, for pulmonary toilet at home. CT abdomen and pelvis shows slightly displaced multilevel left posterior rib fractures 7 through 12, no flail segment, no pneumothorax or hemothorax, solid organs including the spleen reassuring, no abdominopelvic injuries identified. See radiology report. Discussed importance of pulmonary toilet and pain medications and breathing deeply to help prevent pneumonia. Patient would like to be treated as an outpatient for now. Discharged with incentive spirometer, albuterol to be sent to his pharmacy with use of spacer, pain medications, anti-inflammatory medications, prescription sent to his pharmacy. Suggest repeat lung exam in the next couple of days with his regular doctor. Return precautions discussed. Discharge Plan Departure Patient Disposition: Home Clinical Impression: Fall (on) (from) other stairs and steps, initial encounter, Multiple rib fractures Activity Restrictions/Additional Instructions: Fall from 3 steps, left lateral posterior chest wall discomfort, initial x-ray suggestive of multiple rib fracture posteriorly, this is concerning for proximity to the spleen and other vital organs. Additional imaging CT abdomen and pelvis with IV contrast therefore performed. CT showed posterior area mildly displaced rib fractures 7 through 12. Fortunately there is not seem to be any splenic injury or any injury to the diaphragm or other structures below the diaphragm in the abdomen or pelvis, per Radiology report. IV Toradol medication was given, improved pain control. Take further anti-inflammatory pain medication naproxen, sent prescription to your pharmacy. Additional pain medication hydrocodone mixed with Tylenol also sent to your pharmacy to take regularly over the next 2-[address] while you are taking opiate medication. Additionally in inhaler albuterol was sent to your pharmacy to use with spacer dispensed, 2 puffs 4 times daily on a regular basis for this next week and then as needed. Advised recheck of your lungs and symptoms with your regular doctor in the next 2-3 days. You are at significant risk of developing pneumonia due to multiple rib fractures. It is important that you have adequate breathing deeply, with pain control, so the you do not have local collapsed lung and development of pneumonia. Recheck with your regular doctor advised in the next 2-3 days. Recheck here in the emergency department for any change worsening symptoms or any concerns prior Prescriptions: New naproxen 500 mg tablet 500 mg PO BID 7 Days Qty: 14 0RF hydrocodone-acetaminophen 5-325 mg tablet 1 tab PO Q6H PRN (Reason: pain) Qty: 14 0RF albuterol sulfate 90 mcg/actuation HFA aerosol inhaler 2 puff inhalation Q6H PRN (Reason: shortness of breath or wheezing) Qty: 8.5 0RF naproxen 500 mg tablet 500 mg PO BID 7 Days Qty: 14 0RF albuterol sulfate 90 mcg/actuation HFA aerosol inhaler 2 puff inhalation Q6H PRN (Reason: shortness of breath or wheezing) Qty: 8.5 0RF hydrocodone-acetaminophen 5-325 mg tablet 1 tab PO Q6H PRN (Reason: pain) Qty: 14 0RF No Action ketoconazole 2 % cream 1 applic topical BID Qty: 60 1RF metformin 1,000 mg tablet 1,000 mg PO BID Qty: 180 1RF lisinopril-hydrochlorothiazide 20-12.5 mg tablet 1 tab PO DAILY Qty: 90 3RF amlodipine 5 mg tablet 5 mg PO BEDTIME Qty: 90 3RF zolpidem 10 mg tablet See Rx Instructions .ROUTE .COMPLEX Qty: 30 2RF Dose Instruction: TAKE ONE TABLET BY MOUTH AT BEDTIME Rx Instructions: TAKE ONE TABLET BY MOUTH AT BEDTIME oxycodone 5 mg tablet 5 mg PO QID PRN (Reason: pain) Qty: 120 0RF aspirin 81 mg Tablet 81 mg PO DAILY Referrals: Turner Thayer, [Primary Care Provider] - Stand Alone Forms: Patient Portal/API/Survey
[2024-08-10 13:37] VITALS: BP 156/71; PULSE 114; O2SAT 94
[2024-08-10 13:39] VITALS: PULSE 112; O2SAT 93
[2024-08-10] MEDS: KETOROLAC 30 MG/ML VIAL 15 MG IV (13:51)
--- NOTE | 2024-08-10 14:03 | DI.CT.S_ITS ---
PROCEDURE: CT ABDOMEN PELVIS W CON INDICATIONS: Left lower multiple rib fractures from fall, evaluate spleen TECHNIQUE: After the administration of intravenous contrast, axial sections acquired from the lung bases to the pubic symphysis. Coronal and sagittal reformats were performed. For radiation dose reduction, the following was used: automated exposure control, adjustment of mA and/or kV according to patient size. COMPARISON: Outside Facility, RG, CT ABDOMEN/PELVIS WITHOUT CONTRAST, 04/18/2022, 12:59. [facility], CR, XR RIBS LT MIN 3V W CXR1V, 08/10/2024, 12:07. FINDINGS: Image quality: Diagnostic. Lower Chest: No significant findings. ABDOMEN: Liver: No solid mass. Moderate hepatic steatosis is seen. Gallbladder: No radiopaque gallstones or wall thickening. Biliary ducts: No biliary dilation. Pancreas: No ductal dilation. Spleen: Size is within normal limits. No evidence of splenic laceration. Adrenal Glands: Diffuse thickening of left adrenal gland. No definite adrenal nodule is seen. Kidneys and Ureters: No hydronephrosis. No solid mass. No complex renal cystic lesion which requires follow up. Stomach and Bowel: There is no bowel obstruction or abnormal bowel wall thickening. No mesenteric fat stranding. No abscess collection. Peritoneum: No abnormal intraperitoneal fluid. No free air. Ventral Wall: No significant ventral hernia. Abdominal Nodes: No retroperitoneal or mesenteric adenopathy by size criteria. Vessels: Aorta and inferior vena cava are normal in size. Moderate atherosclerotic calcifications are seen in abdominal aorta. PELVIS: Pelvic Organs: Unremarkable. Bladder: No bladder wall thickening, accounting for underdistention. Pelvic Nodes: No enlarged lymph nodes. Miscellaneous: No inguinal hernias are seen. Bones: No aggressive osseous abnormality. Postsurgical changes are noted in bilateral superior pubic rami from prior internal fixation. Prior surgical fusion of left sacroiliac joint is also noted with surgical hardware in place. No gross hardware loosening or failure. Minimally displaced fractures are noted involving left posterior 12th, 11th, 10th, 9th, 8th, and 7th ribs. IMPRESSION: 1. Slightly displaced acute appearing fractures involving left posterior 7th through 12th ribs. 2. No other fracture or dislocation is seen. Postsurgical changes in bony pelvis as above. 3. No acute solid organ injury is seen in abdomen or pelvis. Specifically, no evidence of splenic laceration. 4. Moderate hepatic steatosis. Diffuse thickening of left adrenal gland without definite adrenal nodule. Dictated by: Ryan Lofton M.D. on 08/10/2024 at 14:13 Approved by: Ryan Lofton M.D. on 08/10/2024 at 14:18
--- NOTE | 2024-08-10 14:05 | PC.NURSE ---
Accompanied pt via wheelchair to car to let his dog out.
[2024-08-10 14:11] VITALS: BP 183/82; PULSE 107; O2SAT 97
[2024-08-10 14:19] LABS: Lipase 47 U/L (23-300)
[2024-08-10 14:39] VITALS: PULSE 100
== END 2024-08-10 15:10 | disposition home or self-care (01) ==
PROVIDERS: Emergency Provider Emergency Medicine; PCP Family Medicine
DX: S22.42XA Multiple fractures of ribs, left side, initial encounter for closed fracture (principal); W10.9XXA Fall (on) (from) unspecified stairs and steps, initial encounter
CPT/HCPCS: 36415; 71101; 74177; 80053; 83690; 85025; 96374; 99284; J1885; Q9967